=== PATIENT | male | born 1950 | race Caucasian/White ===

== ENCOUNTER → 2018-09-15 | Outpatient (CLI) | payer MEDICARE | LOC: LAB.O 14:15 | PROVIDERS: ATTEND Family Medicine | DX: E87.1 Hypo-osmolality and hyponatremia (principal) ==

== ENCOUNTER → 2018-10-30 | Outpatient (CLI) | payer MEDICARE | LOC: LAB.O 13:06 | PROVIDERS: ATTEND Family Medicine | DX: E87.1 Hypo-osmolality and hyponatremia (principal) ==